=== PATIENT | female | born 1980 | race African-American/Black ===

== ENCOUNTER 2017-05-28 23:18 | Inpatient (IN) | payer OTHER, MEDICAID ==
[~2017-05-28] VITALS: Ht 160 cm; Wt 77.1 kg
[2017-05-29] MEDS: LACTATED RINGERS 1,000 ML IV SCH ×2 (00:50→04:13)
[2017-05-29] MEDS ORDERED: FERR134T2 PO (01:09)
[2017-05-29] MEDS ORDERED: PNV1TABL76 MT (01:09)
[2017-05-29 01:15] LABS: HEMATOCRIT. 34.2 % (36.0-48.0); HEMOGLOBIN. 11.1 g/dL (12.0-16.0); MEAN CORPUSCULAR HEMOGLOBIN 27.2 pg (28.0-32.0); MEAN CORPUSCULAR VOLUME 83.7 fL (81.0-99.0); MEAN PLATELET VOLUME 9.4 fl (7.4-10.4); PLATELET 143 x1000/uL (130-400); RED BLOOD CELL COUNT 4.09 mill/uL (4.2-5.4); RED CELL DISTRIBUTION WIDTH 14.5 % (11.6-14.6)
[2017-05-29 01:18] LABS: CLARITY URINE TURBID (CLEAR); COLOR URINE YELLOW (YELLOW); GLUCOSE URINE TRACE (NEGATIVE); KETONES URINE NEGATIVE (NEGATIVE); LEUKOCYTE ESTERASE URINE NEGATIVE (NEGATIVE); NITRITE URINE NEGATIVE (NEGATIVE); OCCULT BLOOD URINE 3+ (NEGATIVE); PROTEIN URINE 1+ (NEGATIVE); SPECIFIC GRAVITY URINE 1.021 (1.005-1.030); UROBILINOGEN URINE 0.2 E.U./dL (0.2-1.0)
[2017-05-29 02:45] LABS: PLATELET ESTIMATE NORMAL
[2017-05-29] MEDS ORDERED: TERBUTALINE SULFATE 1MG/ML VIAL SUBCUT SCH (03:30)
[2017-05-29] MEDS ORDERED: DEXT 5%/LR + PITOCIN 20UNITS/L 2,000 ML IV SCH (05:26)
[2017-05-29] MEDS ORDERED: NALOXONE HCL 0.4 MG/ML 1ML VIAL IM PRN ×2 (05:30→21:45)
[2017-05-29] MEDS ORDERED: METHYLERGONOVINE MALEATE 0.2 MG/ML IM PRN ×2 (05:30→21:45)
[2017-05-29] MEDS ORDERED: OXYTOCIN 10 UNITS/ML 1ML ONE (05:59)
[2017-05-29] MEDS ORDERED: MIDAZOLAM HCL 2 MG/2 ML VIAL ONE (05:59)
[2017-05-29] MEDS ORDERED: ONDANSETRON HCL 4MG/2ML VIAL ONE (05:59)
[2017-05-29] MEDS ORDERED: DEXAMETHASONE 4MG/ML 1ML VIAL ONE (05:59)
[2017-05-29] MEDS ORDERED: SODIUM CHLORIDE 0.9% 10ML VIAL ONE (05:59)
[2017-05-29] MEDS ORDERED: MORPHINE SULFATE/PF 1MG/ML 10ML AMP ONE (05:59)
[2017-05-29] MEDS ORDERED: CEFAZOLIN 2000MG PREMIX 50 ML IV ONE (06:00)
[2017-05-29 06:15] LABS: HEMATOCRIT. 34.8 % (36.0-48.0); HEMOGLOBIN. 11.3 g/dL (12.0-16.0); MEAN CORPUSCULAR VOLUME 82.9 fL (81.0-99.0); MEAN PLATELET VOLUME 9.4 fl (7.4-10.4); PLATELET 145 x1000/uL (130-400); RED CELL DISTRIBUTION WIDTH 14.6 % (11.6-14.6)
[2017-05-29 06:26] LABS: PROTHROMBIN TIME 9.9 sec (9.4-11.6)
[2017-05-29 06:31] LABS: CARBON DIOXIDE 25 mEq/L (21-32); CHLORIDE 106 mEq/L (98-107)
[2017-05-29 07:06] LABS: RUBELLA IGG 43.4 IU/mL (4.99-10)
[2017-05-29 07:07] LABS: HEPATITIS B SURFACE ANTIGEN NEGATIVE
[2017-05-29 07:13] LABS: *AMPHETAMINES SCREEN URINE NEGATIVE (NEGATIVE); *BARBITURATES SCREEN URINE NEGATIVE (NEGATIVE); *BENZODIAZEPINES SCREEN URINE NEGATIVE (NEGATIVE); *COCAINE SCREEN URINE NEGATIVE (NEGATIVE); CANNABINOID URINE SCREEN NEGATIVE (NEGATIVE); METHADONE URINE SCREEN NEGATIVE (NEGATIVE); OPIATES URINE SCREEN NEGATIVE (NEGATIVE); PHENCYCLIDINE URINE SCREEN NEGATIVE (NEGATIVE)
[2017-05-29] MEDS ORDERED: DEXT 5%/LR + PITOCIN 20UNITS/L 1,000 ML IV SCH (08:02)
[2017-05-29 08:14] LABS: D-DIMER 9.44 mg/L FEU (<0.50)
[2017-05-29] MEDS ORDERED: BISACODYL 10MG SUPP PR PRN ×2 (08:15→21:45)
[2017-05-29] MEDS ORDERED: NALOXONE HCL 0.4 MG/ML 1ML VIAL IV PRN (08:15)
[2017-05-29] MEDS ORDERED: DIPHENHYDRAMINE 50MG/ML VIAL IV PRN ×2 (08:15→21:45)
[2017-05-29] MEDS ORDERED: ONDANSETRON HCL 4MG/2ML VIAL IV PRN ×2 (08:15→21:45)
[2017-05-29] MEDS ORDERED: HYDROMORPHONE HCL/PF 2MG/ML CPJ IM PRN ×2 (08:15→21:45)
[2017-05-29] MEDS ORDERED: IBUPROFEN 400MG TABLET PO PRN ×2 (08:15→21:45)
[2017-05-29] MEDS ORDERED: IBUPROFEN 800MG TABLET PO PRN (08:15)
[2017-05-29] MEDS ORDERED: HYDROCODONE/ACETAMINOPHEN 5/325MG TABLET PO PRN (08:15)
[2017-05-29] MEDS ORDERED: RHO(D) IMMUNE GLOBULIN 300 MCG/SYR IM PRN ×2 (08:15→21:45)
[2017-05-29 09:46] LABS: PLATELET ESTIMATE NORMAL
[2017-05-29] MEDS ORDERED: LABETALOL HCL 100MG TABLET PO SCH (10:10)
[2017-05-29] MEDS: KETOROLAC 30MG/ML VIAL IV SCH ×4 (11:04→22:14)
[2017-05-29 11:45] VITALS: BP 134/82
[2017-05-29 12:15] VITALS: BP 132/80
[2017-05-29 20:00] VITALS: BP 135/86
[2017-05-29] MEDS: LABETALOL HCL 100MG TABLET PO SCH (22:13)
[2017-05-30] MEDS: KETOROLAC 30MG/ML VIAL IV SCH (04:31)
[2017-05-30 06:03] VITALS: BP 123/76
[2017-05-30 07:34] VITALS: BP 113/68
[2017-05-30] MEDS: IBUPROFEN 800MG TABLET PO PRN ×3 (08:14→22:56)
[2017-05-30] MEDS: LABETALOL HCL 100MG TABLET PO SCH ×2 (08:16→21:19)
[2017-05-30] MEDS: HYDROCODONE/ACETAMINOPHEN 5/325MG TABLET PO PRN ×2 (13:03→17:57)
[2017-05-30 16:09] VITALS: BP 132/77
[2017-05-30 20:50] VITALS: BP 137/81
[2017-05-31 05:00] VITALS: BP 134/85
[2017-05-31] MEDS: IBUPROFEN 800MG TABLET PO PRN ×4 (05:21→23:46)
[2017-05-31 07:58] VITALS: BP 152/85
[2017-05-31] MEDS: LABETALOL HCL 100MG TABLET PO SCH ×2 (09:08→20:13)
[2017-05-31 16:04] VITALS: BP 159/95
[2017-05-31] MEDS: HYDROCODONE/ACETAMINOPHEN 5/325MG TABLET PO PRN ×2 (17:02→21:14)
[2017-05-31] MEDS ORDERED: TETANUS, DIPHTHERIA, PERTUSSIS VAC/PF 0.5ML (>7YR OLD) IM ONE (18:30)
[2017-05-31] MEDS ORDERED: INFLUENZA VIRUS VACCINE 0.5ML SYR IM ONE (18:30)
[2017-05-31 20:00] VITALS: BP 160/88
[2017-06-01] MEDS: IBUPROFEN 800MG TABLET PO PRN ×2 (06:08→12:38)
[2017-06-01 06:11] VITALS: BP 159/91
[2017-06-01 08:00] VITALS: BP 146/84
[2017-06-01] MEDS ORDERED: LABETALOL HCL 200MG TABLET PO SCH (09:00)
[2017-06-01 12:30] VITALS: BP 152/83
== END 2017-06-01 15:00 | disposition home or self-care (01) | DRG 540 ==
LOC: OBSVTOIN 23:18 → L&D 23:18 → 7EST PP/OB 05-29 11:40 → UNDODISIN 05-29 13:00
PROVIDERS: ADMIT Obstetrics & Gynecology; ATTEND Obstetrics & Gynecology
PROC: 0UB70ZZ Excision of Bilateral Fallopian Tubes, Open Approach (ICD-10-PCS; 2017-05-29)
PROC: 10D00Z1 Extraction of Products of Conception, Low, Open Approach (ICD-10-PCS; principal; 2017-05-29 08:00)
DX: O60.14X0 Preterm labor third trimester with preterm delivery third trimester, not applicable or unspecified (principal); O16.4 Unspecified maternal hypertension, complicating childbirth; Z23 Encounter for immunization; O34.211 Maternal care for low transverse scar from previous cesarean delivery; Z37.0 Single live birth; Z30.2 Encounter for sterilization; Z3A.36 36 weeks gestation of pregnancy; Z82.49 Family history of ischemic heart disease and other diseases of the circulatory system
CPT/HCPCS: 36415; 76805; 76818; 80053; 80305; 81001; 84550; 85025; 85379; 85384; 85610; 85730; 86592; 86703; 86762; 86850; 86900; 86920; 87340; 88302; 88307; 90715; A4216; G0378; J0690; J1100; J1200; J1885; J2250; J2274; J2405; J2590; J3105; J7120

== ENCOUNTER → 2024-03-25 | Emergency (ER) | payer MEDICAID ==
[~2024-03-25] VITALS: Ht 162.6 cm; Wt 68.0 kg
[~2024-03-25] MED LIST: ESCI5SOL2 MT; FERR134T2 PO; IBUP1TAB11 PO; IOHEXOL-350 100 ML BOTTLE ONE; LOSA50TA41 PO; METF-414 PO; PNV1TABL76 MT
[2024-03-25 05:28] VITALS: O2SAT 100
[2024-03-25 06:25] LABS: CHLORIDE 105 mEq/L (98-107); POTASSIUM 3.3 mEq/L (3.5-5.1); SODIUM 141 mEq/L (136-145)
[2024-03-25 06:26] LABS: CARBON DIOXIDE 28 mEq/L (21-32)
[2024-03-25 06:27] LABS: CALCIUM 9.4 mg/dL (8.7-10.4)
[2024-03-25 06:31] LABS: CREATININE 0.8 mg/dL (0.6-1.0); GLUCOSE 110 mg/dL (70-105); UREA NITROGEN BLOOD 13 mg/dL (9-23)
[2024-03-25 06:32] LABS: TROPONIN I HIGH SENSITIVITY 4 ng/L (3.0-34)
[2024-03-25 06:35] LABS: EOSINOPHILS % 1.3 % (0.0-5.0); HEMATOCRIT. 33.2 % (36.0-48.0); HEMOGLOBIN. 10.8 g/dL (12.0-16.0); LYMPHOCYTES % 36.2 % (20.0-50.0); MEAN CORPUSCULAR HEMOGLOBIN 25.9 pg (28.0-32.0); MEAN CORPUSCULAR HGB CONC 32.4 g/dL (31.0-37.0); MEAN PLATELET VOLUME 8.9 fl (7.4-10.4); MONOCYTES % 7.5 % (2.0-8.0); PLATELET 262 x1000/uL (130-400); RED BLOOD CELL COUNT 4.15 mill/uL (4.2-5.4); RED CELL DISTRIBUTION WIDTH 17.5 % (11.6-14.6); WHITE BLOOD COUNT 5.8 x1000/uL (4.5-11.0)
[2024-03-25 07:07] LABS: HCG SCREEN NEGATIVE
[2024-03-25 09:20] VITALS: BP 142/78; PULSE 78; RESP 15; TEMP 37.16964; O2SAT 100
== END ==
LOC: ER 05:31
DX: R07.89 Other chest pain (principal); E11.9 Type 2 diabetes mellitus without complications; I10 Essential (primary) hypertension; Z79.899 Other long term (current) drug therapy; Z98.890 Other specified postprocedural states; Z98.51 Tubal ligation status
CPT/HCPCS: 80048; 84703; 85025; 85379; 84484; 36415; 71045; 71275; 93005; 99285; Q9967; Z7610